=== PATIENT | male | born 1955 | race Caucasian/White ===

== ENCOUNTER 2021-03-13 15:48 | Emergency (ER) | payer MEDICARE ==
[~2021-03-13 15:48] MED LIST: ALDACTONE25 MG PO; ASPIRIN CHEWABL81 MG PO; CENTRUM SILVER1 EAC1 PO; CLEOCIN HCL300 MG PO; CORDARONE 200M200 MG PO; COREG 25MG TAB25 MG PO; DIGOXIN125 MCG PO; ELIQUIS5 MG PO; INSULIN SC; JANUVIA100 MG PO; LASIX40 MG PO; LEVAQUIN500 MG PO; LEVEMIR100 UNIT/1 PO; LIPITOR TAB 1010 MG PO; LISINOPRIL40 MG PO; MEGA RED PO; NAPROSYN EC 37375 MG PO; TOUJEO SC; TYLENOL W/CODEIN1 E1 PO; ZESTRIL40 MG PO
[2021-03-13 18:41] LABS: RED BLOOD COUNT 4.8 M/UL (4.20-5.50)
[2021-03-13 19:01] LABS: BUN/CREATININE RATIO 28 (0-10)
[2021-03-14 13:52] LABS: BUN/CREATININE RATIO 30 (0-10)
== END 2021-03-14 19:50 | disposition left against medical advice (07) ==
LOC: ER1 15:48
PROVIDERS: Physician Assistant
DX: K80.80 Other cholelithiasis without obstruction (principal); E11.9 Type 2 diabetes mellitus without complications; I50.9 Heart failure, unspecified; I42.9 Cardiomyopathy, unspecified; R18.8 Other ascites; I31.3 Pericardial effusion (noninflammatory); Z20.822 Contact with and (suspected) exposure to COVID-19
CPT/HCPCS: 71046; 80048; 80053; 81001; 82550; 82553; 82962; 83690; 83874; 83880; 84484; 85025; 93005; 96374; 99284; J1940; U0002